=== PATIENT | male | born 1950 | race Hispanic/Latino ===

== ENCOUNTER → 2018-06-12 | Outpatient (REF) | payer MEDICARE ==
[~2018-06-12] MED LIST: AMOXICILLIN500 MG PO; AUGMENTIN875TAB PO; BACTRIM DS1 TAB PO; BLADDER CONTROL; LISINOPRIL5 MG OR; LISINOPRIL5 MG PO; LORTAB 5 OR; MULTI VIT PO; NYSTAT/TRIA2 EX; OMEPRAZOLE20 MG PO; PANTOPRAZOLE SO40 MG PO; PREDNISONE20 MG PO; TRAMADOL HCL50 MG; VESICARE5 MG PO; ZOFRAN ODT4 MG PO
[2018-06-12 11:56] LABS: IMMATURE GRANULOCYTES 0.3 % (0.0-5.0); MEAN CELL VOLUME 93.4 fL CALC (80.0-100.0); MEAN CORPUSCULAR HGB 31.8 pG CALC (26.0-32.0); MEAN CORPUSCULAR HGB CONC 34.1 g/L CALC (32.0-36.0); NEUT# 3.19 thou/uL (1.82-7.42); RED BLOOD COUNT 4.71 mill/uL (4.70-6.10); RED CELL DISTRI WIDTH 12.7 % (11.5-15.5)
[2018-06-12 11:57] LABS: URINE BILIRUBIN - DIPSTICK NEGATIVE (NEGATIVE); URINE BLOOD DIPSTICK NEGATIVE (NEGATIVE); URINE COLOR YELLOW; URINE GLUCOSE - DIPSTICK NEGATIVE (NEGATIVE); URINE KETONE NEGATIVE (NEGATIVE); URINE LEUK ESTERASE NEGATIVE (NEGATIVE); URINE NITRITE - DIPSTICK NEGATIVE (Negative); URINE PROTEIN - DIPSTICK NEGATIVE (NEG-TRACE); URINE UROBILINOGEN - DIPSTICK 0.2 E.U./dL (0.2)
[2018-06-12 12:17] LABS: ALBUMIN 4.1 g/dL (3.2-5.0); ALKALINE PHOSPHATASE 108 u/l (38-126); ANION GAP 12 (6-22 (CALC)); BILIRUBIN, TOTAL 0.8 mg/dL (0.0-1.4); BUN 17 mg/dL (8-23); BUN/CREATININE RATIO 17 (12-20 (CALC)); CALCULATED LDLCHOLESTEROL 137 mg/dL (62-129 (CALC)); CARBON DIOXIDE 26 mmol/l (22-30); CHLORIDE 106 mmol/l (95-108); CHOLESTEROL HDL RATIO 3.7 (<4.4 (CALC)); GFR > 60 ML/MIN (>=60 (CALC)); GFR FOR AFR.AMER. > 60 ML/MIN (>=60 (CALC)); HDL CHOLESTEROL 57 mg/dL (>=40); POTASSIUM 4.1 mmol/l (3.5-5.1); SGOT/AST 23 u/l (19-48); SODIUM 140 mmol/l (137-146); TOTAL CHOLESTEROL 212 mg/dl (0-199); TOTAL PROTEIN 6.9 g/dL (6.3-8.2); TOTAL TRIGLYCERIDES 91 mg/dl (30-149); VLDL CHOLESTROL 18 mg/dl (4-45 (CALC))
[2018-06-12 12:47] LABS: TSH, 3RD GENERATION 2.17 uIU/mL (0.47 - 4.68)
== END | disposition home or self-care (01) ==
LOC: LAB 11:35
PROVIDERS: ATTEND Internal Medicine
DX: E78.5 Hyperlipidemia, unspecified (principal); K21.0 Gastro-esophageal reflux disease with esophagitis

== ENCOUNTER 2018-12-06 01:26 | Emergency (ER) | payer MEDICARE ==
[~2018-12-06] VITALS: Ht 175.3 cm; Wt 85.0 kg
[2018-12-06 02:13] LABS: URINE BILIRUBIN - DIPSTICK NEGATIVE (NEGATIVE); URINE BLOOD DIPSTICK LARGE (NEGATIVE); URINE COLOR DK. YELLOW; URINE GLUCOSE - DIPSTICK NEGATIVE (NEGATIVE); URINE KETONE TRACE mg/dL (NEGATIVE); URINE LEUK ESTERASE NEGATIVE (NEGATIVE); URINE NITRITE - DIPSTICK NEGATIVE (Negative); URINE PROTEIN - DIPSTICK 100 mg/dL (NEG-TRACE); URINE UROBILINOGEN - DIPSTICK 0.2 E.U./dL (0.2)
[2018-12-06 02:14] LABS: URINE RBC 50-100 RBC/hpf (0-5)
[2018-12-06 02:33] LABS: HEMATOCRIT 46.1 % (39.0-50.0); HEMOGLOBIN 15.5 g/dl (14.0-18.0); IMMATURE GRANULOCYTES 1.1 % (0.0-5.0); MEAN CELL VOLUME 94.3 fL CALC (80.0-100.0); MEAN CORPUSCULAR HGB 31.7 pG CALC (26.0-32.0); MEAN CORPUSCULAR HGB CONC 33.6 g/L CALC (32.0-36.0); NEUT# 10.84 thou/uL (1.82-7.42); RED BLOOD COUNT 4.89 mill/uL (4.70-6.10); RED CELL DISTRI WIDTH 13.3 % (11.5-15.5)
[2018-12-06 02:47] LABS: ALKALINE PHOSPHATASE 140 u/l (38-126); AMYLASE 66 u/l (30-110); ANION GAP 15 (6-22 (CALC)); BUN 23 mg/dL (8-23); BUN/CREATININE RATIO 27 (12-20 (CALC)); CARBON DIOXIDE 26 mmol/l (22-30); CHLORIDE 104 mmol/l (95-108); CREATININE 0.9 mg/dL (0.7-1.3); GFR > 60 ML/MIN (>=60 (CALC)); GFR FOR AFR.AMER. > 60 ML/MIN (>=60 (CALC)); LIPASE 96 u/l (23-300); POTASSIUM 4.1 mmol/l (3.5-5.1); SGOT/AST 20 u/l (19-48); SODIUM 141 mmol/l (137-146)
[2018-12-06 02:52] LABS: ALBUMIN 4.9 g/dL (3.2-5.0); BILIRUBIN, TOTAL 0.4 mg/dL (0.0-1.4); TOTAL PROTEIN 7.9 g/dL (6.3-8.2)
[2018-12-06] MEDS ORDERED: ZESTRIL5 M1 PO (07:03)
[2018-12-06 07:10] VITALS: BP 157/75
== END 2018-12-06 07:10 | disposition home or self-care (01) ==
LOC: ED 01:26
PROVIDERS: Family Medicine
DX: R10.13 Epigastric pain (principal); I10 Essential (primary) hypertension; R31.9 Hematuria, unspecified
CPT/HCPCS: Q9967

== ENCOUNTER 2019-03-27 20:29 | Observation (INO) | payer MEDICARE ==
[~2019-03-27] VITALS: Ht 175.3 cm; Wt 81.4 kg
[~2019-03-27 20:29] MED LIST changes: +ZESTRIL5 M1 PO
[2019-03-27 21:21] LABS: HEMATOCRIT 41.6 % (39.0-50.0); HEMOGLOBIN 14.2 g/dl (14.0-18.0); IMMATURE GRANULOCYTES 0.3 % (0.0-5.0); MEAN CELL VOLUME 95.2 fL CALC (80.0-100.0); MEAN CORPUSCULAR HGB 32.5 pG CALC (26.0-32.0); MEAN CORPUSCULAR HGB CONC 34.1 g/L CALC (32.0-36.0); NEUT# 6.65 thou/uL (1.82-7.42); RED BLOOD COUNT 4.37 mill/uL (4.70-6.10); RED CELL DISTRI WIDTH 12.9 % (11.5-15.5)
[2019-03-27 21:35] LABS: ALBUMIN 4.1 g/dL (3.2-5.0); ALKALINE PHOSPHATASE 113 u/l (38-126); ANION GAP 12 (6-22 (CALC)); BUN 22 mg/dL (8-23); BUN/CREATININE RATIO 21 (12-20 (CALC)); CARBON DIOXIDE 28 mmol/l (22-30); CHLORIDE 102 mmol/l (95-108); GFR > 60 ML/MIN (>=60 (CALC)); GFR FOR AFR.AMER. > 60 ML/MIN (>=60 (CALC)); POTASSIUM 4.2 mmol/l (3.5-5.1); SGOT/AST 22 u/l (19-48); SODIUM 138 mmol/l (137-146); TOTAL PROTEIN 7.1 g/dL (6.3-8.2)
[2019-03-27 21:38] LABS: BILIRUBIN, TOTAL 0.6 mg/dL (0.0-1.4)
[2019-03-27 21:44] LABS: MYOGLOBIN 56 ng/mL (0 - 121)
[2019-03-27 22:00] VITALS: BP 151/75
[2019-03-27 22:10] VITALS: BP 159/72
[2019-03-27 22:15] VITALS: BP 157/78
[2019-03-28] VITALS (9 sets, daily range): BP systolic 94–144; BP diastolic 55–76
[2019-03-28 00:51] LABS: URINE BILIRUBIN - DIPSTICK NEGATIVE (NEGATIVE); URINE BLOOD DIPSTICK NEGATIVE (NEGATIVE); URINE COLOR YELLOW; URINE GLUCOSE - DIPSTICK NEGATIVE (NEGATIVE); URINE KETONE NEGATIVE (NEGATIVE); URINE LEUK ESTERASE NEGATIVE (NEGATIVE); URINE NITRITE - DIPSTICK NEGATIVE (Negative); URINE PH 6.5 (4.5-8.0); URINE PROTEIN - DIPSTICK NEGATIVE (NEG-TRACE)
[2019-03-29 00:30] VITALS: BP 115/55
[2019-03-29 04:19] VITALS: BP 119/73
[2019-03-29 07:42] VITALS: BP 152/73
[2019-03-29 10:20] VITALS: BP 120/66
[2019-03-29 10:25] VITALS: BP 143/62
[2019-03-29 10:30] VITALS: BP 134/76
== END 2019-03-29 13:22 | disposition home or self-care (01) ==
LOC: ED 20:29 → MS2 22:54 → ED 23:12 → ED-I 23:12 → ED 23:13 → MS2 23:14 → ED 23:14 → MS2 03-29 13:22
PROVIDERS: Family Medicine; ADMIT Internal Medicine; ATTEND Internal Medicine
DX: I95.1 Orthostatic hypotension (principal); I10 Essential (primary) hypertension; R01.1 Cardiac murmur, unspecified
CPT/HCPCS: G0378; J1650

== ENCOUNTER 2020-06-18 19:46 | Observation (INO) | payer MEDICARE ==
[~2020-06-18] VITALS: Ht 175.3 cm; Wt 79.0 kg
[2020-06-18 11:58] VITALS: BP 153/77
[2020-06-18] MEDS ORDERED: ZESTRIL5 M1 PO (20:05)
--- NOTE | 2020-06-18 20:06 | NUR ---
PT AMB TO ER RM 14 WALKS WITHOUT DIFF
[2020-06-18 20:43] LABS: HEMATOCRIT 38.8 % (39.0-50.0); HEMOGLOBIN 12.9 g/dl (14.0-18.0); IMMATURE GRANULOCYTES 0.4 % (0.0-5.0); MEAN CELL VOLUME 94.2 fL CALC (80.0-100.0); MEAN CORPUSCULAR HGB 31.3 pG CALC (26.0-32.0); MEAN CORPUSCULAR HGB CONC 33.2 g/dL CAL (32.0-36.0); NEUT# 4.13 thou/uL (1.82-7.42); RED BLOOD COUNT 4.12 mill/uL (4.70-6.10); RED CELL DISTRI WIDTH 12.7 % (11.5-15.5)
[2020-06-18 21:00] LABS: ALBUMIN 3.7 g/dL (3.2-5.0); ALKALINE PHOSPHATASE 111 u/l (38-126); ANION GAP 10 (6-22 (CALC)); BILIRUBIN, TOTAL 0.5 mg/dL (0.0-1.4); BUN 22 mg/dL (8-23); BUN/CREATININE RATIO 19 (12-20 (CALC)); CARBON DIOXIDE 26 mmol/l (22-30); CHLORIDE 104 mmol/l (95-108); CREATININE 1.2 mg/dL (0.7-1.3); ETHYL ALCOHOL 0 mg/dl (0-30); GFR 60 ML/MIN (>=60 (CALC)); GFR FOR AFR.AMER. > 60 ML/MIN (>=60 (CALC)); MAGNESIUM 1.9 mg/dL (1.6-2.3); SGOT/AST 19 u/l (19-48); SODIUM 137 mmol/l (137-146); TOTAL PROTEIN 6.3 g/dL (6.3-8.2)
--- NOTE | 2020-06-18 21:01 | NUR ---
Reassessment of patient completed. No distress noted.
[2020-06-18 21:10] LABS: ACT PARTIAL THROMBO TIME 25.9 SECONDS (20.0-32.5); PROTHROMBIN TIME 10.4 SECONDS (9.0-12.5)
[2020-06-18 21:11] LABS: MYOGLOBIN 35 ng/mL (0 - 121)
[2020-06-18 21:37] LABS: D-DIMER 0.29 mg/L (0.19-0.60)
--- NOTE | 2020-06-18 22:12 | NUR ---
WE/P/D SKIN SPEECH CLEAR NO FOCAL DEFICITS.[facility] 15 MAEW
--- NOTE | 2020-06-18 23:40 | NUR ---
PHONE REPORT TO NURSE AL
--- NOTE | 2020-06-18 23:45 | NUR ---
PT IS A/OX3 NO FOCAL DEFICITS [facility] IS 15 SPEECH CLEAR TRANSPORTED TO [place] RM 271 VIA IN STABLE CONDITION
--- NOTE | 2020-06-18 23:46 | NUR ---
REPORT RECEVIED FROM NURSE AG IN ER, PENDING PT TO THE FLOOR AT THIS TIME.
[2020-06-19 00:57] VITALS: BP 130/66
[2020-06-19 00:58] VITALS: BP 141/68; BP 143/68
--- NOTE | 2020-06-19 00:59 | NUR ---
[facility] BREATHING EVEN AND UNLBAORED. HEART SOUNDS WNL. LUNGS CTA I ALL LOBES. SKIN INTACT. ABDOMINAL SOUNDS ACTIVE X 4 QUADS. LAST BM ON 06/18/20. NO COMPLAINTS OF DIZZINESS/SYNCOPE AT THIS TIME. ORTHOSTATIC B/P OBTAINED: LAYING-130/66, SITTING- 141/68, STANDING 143/68. NO COMPLAINTS OF DIZZINESS WHILE OBTAINING ORTHOSTATICS. PULSES STRONG AND PALPABLE. PERRLA NOTED AT TIME OF ADMISSION. IV SALINE LOCK TO RAC #22, FLUSHES EASILY. DENIES PAIN. INDICATED HE WAS HUNGRY, PROVIDED PT WITH A TV DINNER. PT DENIES ANY NEEDS OR WANTS AT THIS TIME. SAFETY PRECAUTIONS IN PLACE. PT ORIENTATED TO THE ROOM AND THE FLOOR. ADVISED PT TO USE CALL MAYNARD WHEN GETTING OUT OF BED. PT IS ALERT AND ORIENTED TO PERSON, PLACE, TIME, AND SITUATION. PT IS ABLE TO IDENTIFY THE CORRECT MONTH, DATE, PRESIDENT, AND YEAR. WILL MONITOR.
--- NOTE | 2020-06-19 04:03 | NUR ---
PT RESTING QUIETLY IN BED WITH EYES CLOSED. NO COMPLAINTS VOICED AT THIS TIME. DENIES PAIN. DENIES DIZZINESS. WILL MONITOR
[2020-06-19 05:10] VITALS: BP 126/74
[2020-06-19 08:05] VITALS: BP 122/72
--- NOTE | 2020-06-19 08:05 | NUR ---
ASSESSMENT IS COMPLTED: IV SITE IS FREE FROM REDNESS OR EDEMA. HR IS REG,PULSES ARE STRONG X4, ABD IS SOFT WITH ACTIVE BS. BREATH SOUNDS ARE CLEAR,BILATERALLY, NO C/O SOB. TELE MONITOR IN PLACE.
[2020-06-19 10:55] VITALS: BP 140/72
--- NOTE | 2020-06-19 12:00 | NUR ---
PT'S IV SITE DISCONITNUED CATHETER INTACT. NO REDNESS OR EDEMA. NOTED. DISCHARGE INSTRUCTIONS GIVEN AND VERBALIZED UNDERSTANDING. PT HAS OWN VEHICLE DOWNSTAIRS.
--- NOTE | 2020-06-19 12:30 | NUR ---
ALL INSTRUCTIONS GIVEN TO PT. AND VERBALIZED UNDERSTANDING. Discharge instructions given. Patient verbalizes understanding of same. Discharged in stable condition via Wheelchair to Home with *Other. All belongings sent with pt.DROVE SELF HOME.
== END 2020-06-19 11:45 | disposition home or self-care (01) ==
LOC: ED 19:46 → ED-I 21:31 → ED 21:55 → MS2 21:56
PROVIDERS: Family Medicine; ADMIT Internal Medicine; ATTEND Internal Medicine
DX: R55 Syncope and collapse (principal); I10 Essential (primary) hypertension; N32.81 Overactive bladder; Z85.46 Personal history of malignant neoplasm of prostate; Z20.822 Contact with and (suspected) exposure to COVID-19
CPT/HCPCS: J1650

== ENCOUNTER 2021-10-07 23:39 | Emergency (ER) | payer MEDICARE ==
[~2021-10-07] VITALS: Ht 175.3 cm; Wt 85.0 kg
[2021-10-07 23:50] VITALS: BP 134/72
[2021-10-08] VITALS (12 sets, daily range): BP systolic 127–163; BP diastolic 70–82
[2021-10-08] MEDS ORDERED: METOPROLOL SUC200 MG PO (00:10)
[2021-10-08] MEDS ORDERED: PRAVASTATIN20 MG PO (00:13)
[2021-10-08] MEDS ORDERED: ASPIRIN 81 LOW81 MG PO (00:13)
[2021-10-08 00:18] LABS: HEMATOCRIT 40.8 % (39.0-50.0); HEMOGLOBIN 13.7 g/dl (14.0-18.0); IMMATURE GRANULOCYTES 0.2 % (0.0-5.0); MEAN CELL VOLUME 95.3 fL CALC (80.0-100.0); MEAN CORPUSCULAR HGB CONC 33.6 g/dL CAL (32.0-36.0); NEUT# 7.9 thou/uL (1.82-7.42); RED BLOOD COUNT 4.28 mill/uL (4.70-6.10); RED CELL DISTRI WIDTH 12.9 % (11.5-15.5)
[2021-10-08 00:32] LABS: ALBUMIN 3.9 g/dL (3.2-5.0); ALKALINE PHOSPHATASE 109 u/l (38-126); AMYLASE 87 u/l (30-110); ANION GAP 12 (6-22 (CALC)); BUN 20 mg/dL (8-23); BUN/CREATININE RATIO 20 (12-20 (CALC)); CARBON DIOXIDE 23 mmol/l (22-30); CHLORIDE 108 mmol/l (95-108); GFR FOR AFR.AMER. > 60 ML/MIN (>=60 (CALC)); GFR OTHER RACES > 60 ML/MIN (>=60 (CALC)); LIPASE 120 u/l (23-300); POTASSIUM 4.1 mmol/l (3.5-5.1); SGOT/AST 25 u/l (19-48); SODIUM 139 mmol/l (137-146); TOTAL PROTEIN 6.5 g/dL (6.3-8.2)
[2021-10-08 00:34] LABS: BILIRUBIN, TOTAL 0.3 mg/dL (0.0-1.4)
[2021-10-08 01:23] LABS: URINE BILIRUBIN - DIPSTICK NEGATIVE (NEGATIVE); URINE BLOOD DIPSTICK MODERATE (NEGATIVE); URINE COLOR YELLOW; URINE GLUCOSE - DIPSTICK NEGATIVE (NEGATIVE); URINE KETONE NEGATIVE (NEGATIVE); URINE LEUK ESTERASE NEGATIVE (NEGATIVE); URINE PROTEIN - DIPSTICK NEGATIVE (NEG-TRACE); URINE SPECIFIC GRAVITY 1.015; URINE UROBILINOGEN - DIPSTICK 0.2 E.U./dL (0.2)
[2021-10-08 01:24] LABS: URINE NITRITE - DIPSTICK NEGATIVE (Negative)
[2021-10-08 01:32] LABS: URINE SQUAMOUS EPITHELIAL CELL FEW EPI/hpf (0-FEW); URINE WBC 0-2 WBC/hpf (0-5)
[2021-10-08] MEDS ORDERED: MIRALAX17 GM PO (02:58)
== END 2021-10-08 03:16 | disposition home or self-care (01) ==
LOC: ED 23:39
PROVIDERS: Family Medicine
DX: K59.00 Constipation, unspecified (principal); I10 Essential (primary) hypertension; K21.9 Gastro-esophageal reflux disease without esophagitis; Z85.46 Personal history of malignant neoplasm of prostate; Z95.0 Presence of cardiac pacemaker